=== PATIENT | female | born 1965 | race Caucasian/White ===

== ENCOUNTER 2021-02-22 13:00 | Outpatient (CLI) | payer BC | END 2021-02-22 13:01 | disposition home or self-care (01) | LOC: CSHMAMMO 13:00 | PROVIDERS: ATTEND Family Medicine | DX: N63.14 Unspecified lump in the right breast, lower inner quadrant (principal); N63.20 Unspecified lump in the left breast, unspecified quadrant | CPT/HCPCS: 77066; G0279 ==

== ENCOUNTER 2022-04-06 10:50 | Outpatient (CLI) | payer BC | END 2022-04-06 10:51 | disposition home or self-care (01) | LOC: CSHMAMMO 10:50 | PROVIDERS: ATTEND Family Medicine | DX: Z12.31 Encounter for screening mammogram for malignant neoplasm of breast (principal); Z80.3 Family history of malignant neoplasm of breast; Z91.89 Other specified personal risk factors, not elsewhere classified; Z98.82 Breast implant status | CPT/HCPCS: 77063; 77067 ==

== ENCOUNTER 2023-01-12 13:44 | Outpatient (CLI) | payer BC | END 2023-01-12 13:45 | disposition home or self-care (01) | LOC: CSHMRI 13:44 | PROVIDERS: ATTEND Nurse Anesthetist, Certified Registered | DX: M47.812 Spondylosis without myelopathy or radiculopathy, cervical region (principal); M50.30 Other cervical disc degeneration, unspecified cervical region; M48.02 Spinal stenosis, cervical region; Z98.1 Arthrodesis status; Z98.890 Other specified postprocedural states | CPT/HCPCS: 72141 ==

== ENCOUNTER 2025-05-29 14:55 | Outpatient (CLI) | payer BC | END 2025-05-29 14:56 | disposition home or self-care (01) | LOC: CSHMRI 14:55 | PROVIDERS: ATTEND Surgery | DX: M48.02 Spinal stenosis, cervical region (principal); M47.812 Spondylosis without myelopathy or radiculopathy, cervical region; Z98.890 Other specified postprocedural states | CPT/HCPCS: 72125 ==

== ENCOUNTER 2025-06-13 10:28 | Outpatient (CLI) | payer BC | END 2025-06-13 10:29 | disposition home or self-care (01) | LOC: CSHRAD 10:28 | PROVIDERS: ATTEND Family Medicine | DX: M43.12 Spondylolisthesis, cervical region (principal); K22.89 Other specified disease of esophagus; K44.9 Diaphragmatic hernia without obstruction or gangrene; K21.9 Gastro-esophageal reflux disease without esophagitis | CPT/HCPCS: 74220 ==